=== PATIENT | female | born 1960 | race Caucasian/White ===

== ENCOUNTER 2017-09-25 00:12 | Emergency (ER) | payer BC ==
[~2017-09-25] VITALS: Ht 167.6 cm; Wt 61.4 kg
[2017-09-25 00:40] VITALS: TEMP 97.8
[2017-09-25 00:42] VITALS: BP 131/82; PULSE 88
== END 2017-09-25 00:46 | disposition home or self-care (01) ==
LOC: COL.ER 00:12
DX: T63.331A Toxic effect of venom of brown recluse spider, accidental (unintentional), initial encounter (principal); F17.210 Nicotine dependence, cigarettes, uncomplicated